=== PATIENT | male | born 1960 | race Caucasian/White ===

== ENCOUNTER 2024-05-13 05:28 | Observation (INO) ==
--- NOTE | 2024-03-29 13:28 | PAT Medication Instructions ---
Medication Instructions Date of Service March 29, 2024 Home Medications Medication Instructions Recorded meloxicam 7.5 mg tablet 7.5 mg PO DAILY PRN pain 90 days 02/29/24 #90 tabs tramadol 50 mg tablet 50 mg PO Q6H PRN pain #45 tabs 03/29/24 meloxicam 7.5 mg tablet 7.5 mg PO DAILY PRN pain acetaminophen 500 mg capsule 1,000 mg PO Q6H PRN Pain acetaminophen 650 mg tablet,extended release 650 - 1,300 mg PO Q12H PRN Pain ibuprofen 200 mg capsule 400 mg PO Q6H PRN Pain omega-3 fatty acids 2,000 mg PO BID tramadol 50 mg tablet 50 mg PO Q6H PRN pain ASK your surgeon for instructions meloxicam 7.5 mg tablet 7.5 mg PO DAILY PRN pain ibuprofen 200 mg capsule 400 mg PO Q6H PRN Pain STOP taking 2 weeks before surgery (or as soon as possible if surgery is within 2 weeks) omega-3 fatty acids 2,000 mg PO BID Take morning of surgery With a small sip of water, OTHERWISE NOTHING TO EAT OR DRINK AFTER MIDNIGHT: acetaminophen 500 mg capsule 1,000 mg PO Q6H PRN Pain (if needed) acetaminophen 650 mg tablet,extended release 650 - 1,300 mg PO Q12H PRN Pain (if needed) tramadol 50 mg tablet 50 mg PO Q6H PRN pain (if needed) Take evening before surgery acetaminophen 500 mg capsule 1,000 mg PO Q6H PRN Pain (if needed) acetaminophen 650 mg tablet,extended release 650 - 1,300 mg PO Q12H PRN Pain (if needed) tramadol 50 mg tablet 50 mg PO Q6H PRN pain (if needed) Other Notes If you have any questions please call us at [phone] or [phone] or [phone] or [phone]
--- NOTE | 2024-04-20 10:16 | Anesthesiology Consultation ---
Date of Service April 20, 2024 Assessment & Plan (1) Encounter for pre-operative examination: - Infectious disease screening: Per assessment on 04/20/24- No known recent infectious disease contacts or current infectious disease symptoms. - Outpatient joint assessment: Pt currently scheduled for inpatient pathway. If surgeon requests review for outpatient joint pathway, patient is an acceptable candidate for outpatient joint program from anesthesia standpoint pending surgeon's office assessment that patient is motivated, has good support and completes [facility] Program preop requirements. Chart Review Chart Review: Acceptable Risk for Surgery and Patient seen in Pre Admission Testing Teaching & Discussion Pre-Anesthesia Teaching/Discussion Notes: Instructed NPO after midnight before surgery,except medications with 15 cc of water. Medication instructions provided according to the PAT guidelines. History Surgery Operation Date: 05/13/24 08:00 Proposed Procedures p Left Total Hip Arthroplasty Anterior - Ruben Wang DO Height/Weight Height: 5 ft 10 in Weight: 108.6 kg Allergies Allergy/AdvReac Type Severity Reaction Status Date / Time No Known Allergies Allergy NONE Verified 03/28/24 07:33 Medications Home Medications Medication Instructions Recorded Confirmed Last Taken meloxicam 7.5 mg tablet 7.5 mg PO DAILY PRN pain 90 days 02/29/24 03/28/24 Unknown #90 tabs acetaminophen 500 mg capsule 1,000 mg PO Q6H PRN Pain 03/28/24 03/28/24 Unknown acetaminophen 650 mg 650 - 1,300 mg PO Q12H PRN Pain 03/28/24 03/28/24 Unknown tablet,extended release ibuprofen 200 mg capsule 400 mg PO Q6H PRN Pain 03/28/24 03/28/24 Unknown tramadol 50 mg tablet 50 mg PO Q6H PRN pain #45 tabs 03/29/24 Unknown Past Medical History Medical History Cataract Right (current) History of depression Hypertriglyceridemia Per records Nocturnal hypoxemia Per records Osteoarthritis Sleep apnea CPAP (compliant) Exercise / Class Metabolic Activity III < 4 Walking/Shop/Light housework Past Family History Family History Mother Diabetes Cancer Other No family history of adverse response to anesthesia Past Surgical History Surgical History H/O detached retina repair left History of cataract surgery left History of hand surgery left History of knee surgery right History of tonsillectomy Past Anesthesia History No Hx of Anesthesia Complications and No Family Hx of Anesthesia Complications History of PONV No Hx of PONV and No Hx of Motion Sickness Social History Smoking Status: Former smoker Do You Dip or Chew Tobacco: Yes (Daily- Advised none DOS) Smoking End Date: Quit 2017 Hx Alcohol Use: No Hx Substance Use: No substance use type: does not use Review of Systems Patient denies chest pain, shortness of breath, fever, chills, cough, wheezing. Physical Exam Vital Signs BP 129/86 P 84 TEMP 98.3 SP02 96%RA RESP 16 Physical Full cervical extension range of motion. Full TMJ range of motion. TMD > 3.5 finger breaths Mallampati Score II Dentition: several missing, poor dentition Lungs: clear throughout to auscultation Cardiac: regular rate and rhythm, no murmurs noted Spine: normal Carotid arteries: negative bruit Extremities: no LE edema Lab Results Anesthesia Preop Results Results Anesthesia Widget: WBC 8.41 K/ul (4.8-10.8) 04/20/24 Hgb 15.2 g/dl (14.0-18.0) 04/20/24 Hct 44.0 % (42.0-52.0) 04/20/24 Plt 278 K/uL (130-400) 04/20/24 Na 135 mmol/L (136-145) L 04/20/24 K 4.7 mmol/L (3.5-5.1) 04/20/24 Cl 101 mmol/L (98-107) 04/20/24 CO2 28 mmol/L (21-32) 04/20/24 BUN 16 mg/dl (6-23) 04/20/24 Creat 0.92 mg/dl (0.6-1.4) 04/20/24 Glucose Level 93 mg/dl (70-99(Fasting)) 04/20/24 PT 11.1 Seconds (9.0-12.0) 04/20/24 PTT 28 Seconds (21-31) 04/20/24 INR 1.0 (0.9-1.1) 04/20/24 Blood Type O Positive 04/20/24 Antibody Screen POSITIVE A 04/20/24 Testing Laboratory Results *Spoke with blood bank- indicates aware of positive antibodies/nothing further needed from PAT* Electrocardiogram Date: 04/20/24 NSR at 75bpm. "Normal ECG" Chest X-Ray Date: 04/20/24 FINDINGS: Heart size and pulmonary vasculature are normal. No effusion, co nsolidation, or pneumothorax. IMPRESSION: No acute findings.
[2024-05-13] MEDS: ACETAMINOPHEN 500 MG TAB PO SCH ×2 (06:04→13:28)
[2024-05-13] MEDS: dexAMETHasone**PF** 10 MG/ML VIAL IV SCH (06:05)
[2024-05-13] MEDS: LR 60ML/HR IV SCH (06:05)
[2024-05-13] MEDS: FAMOTIDINE 20 MG TAB PO SCH (06:05)
[2024-05-13] MEDS: GABAPENTIN 600 MG DOSE PO SCH (06:05)
[2024-05-13] MEDS: LR 500ML BOLUS, THEN 15ML/HR IV SCH (06:05)
[2024-05-13] MEDS ORDERED: ROPIVACAINE 0.5% 5 MG/ML 30 ML VIAL ONE (06:29)
[2024-05-13] MEDS ORDERED: fentaNYL citrate PF 100 MCG/2 ML VIAL IV PRN (06:38)
[2024-05-13] MEDS ORDERED: ATROPINE SULFATE 0.1 MG/ML 10ML SYR IV PRN (06:38)
[2024-05-13] MEDS ORDERED: ePHEDrine sulfate 50 MG/ML AMP IV PRN (06:38)
[2024-05-13] MEDS ORDERED: ONDANSETRON INJ 2 MG/ML 2 ML VIAL IV PRN ×2 (06:38→10:12)
[2024-05-13] MEDS ORDERED: HYDROmorphone INJ 1 MG/ML SYRINGE IV PRN (06:38)
[2024-05-13] MEDS ORDERED: MIDAZOLAM HCL 1 MG/ML 2ML VIAL ONE ×3 (06:42→07:48)
--- NOTE | 2024-05-13 06:51 | History & Physical Bridge Note ---
Date of Service May 13, 2024 History & Physical Bridge Note I have examined the patient, reviewed the History & Physical and in the interval since the performance of the History & Physical I have noted the following changes of clinical significance: no changes noted
[2024-05-13] MEDS: TRANEXAMIC ACID 1,000 MG **IV Pre-op IV SCH (06:52)
[2024-05-13] MEDS ORDERED: PROPOFOL IV EMULSION 10 MG/ML 20 ML VIAL IV ONE (07:21)
[2024-05-13] MEDS: ROPIV 0.5% 246mg, Ketorolac 30mg, EPINEPHrine 0.5mg in NSS INFIL SCH (07:25)
[2024-05-13] MEDS: ceFAZolin 2000MG 2,000 MG/15 ML SYR IV SCH ×2 (07:25→15:37)
[2024-05-13] MEDS: ORTHO JOINT ANESTHETIC ONE (07:25)
[2024-05-13] MEDS: TRANEXAMIC ACID 1,000 MG **IV Intra-op IV SCH (08:00)
--- NOTE | 2024-05-13 08:12 | Operative Report ---
PG Post Operative Report Pre & Post Diagnosis Operation Date: 05/13/24 07:00 Pre-Op Diagnosis: Arthritis Left Hip Post-Op Diagnosis: Arthritis Left Hip I identified the patient and participated in the time-out.: Yes Procedure Operation Date: 05/13/24 07:00 Actual Procedures p Left Anterior Total Hip Arthroplasty, Uncemented(Left) - Ruben Wang DO Surgeon Ruben Wang DO Spanisher Jair Diaz PA-C Estimated Blood Loss 150 Findings Consistent with Post-Op Diagnosis Specimens Left femoral head Description of Procedure Implants used I used a ZimmerBiomet total hip arthroplasty system with a size 7 standard offset Avenir Complete stem, a 52 mm G7 cup, an E1 polyethylene liner, a 36 mm ceramic head with a +7 neck. Balta arrived at the hospital for the above procedure. He was seen in the preoperative holding area and the operative extremity was identified and signed. He was given a spinal anesthetic, a preoperative antibiotic, and TXA. He was then taken back to the operating room and laid on the table in the supine position. He was given basic sedation. The operative leg was secured to a Puristst leg positioner. The hip was then prepped and draped in sterile fashion. A timeout was done and the patient and the operative extremity was properly identified. An anterior approach was used. Dissection was taken down through the fascia and the tensor muscle belly was retracted laterally and the rectus was retracted medially. The circumflex vessels were identified and ligated. The capsule was then incised and tagged for later repair. The femoral neck was then cut and the femoral head was removed. The acetabulum was exposed. Time was spent doing a complete circumferential labral release. Sequential reaming of the acetabulum up to a size 51 reamer was done. Final reamings were done under fluoroscopy to ensure appropriate version. A Biomet 52 mm G7 cup was then impacted into place. The E1 polyethylene liner was then snapped into place. Surrounding soft tissues were then injected with 100 cc of an orthopedic pain control cocktail. The proximal femur was then exposed. Sequential broaching up to a size 7 broach was done. Off that broach a size 36 head with a +7 neck was trialed. The hip was reduced and fluoroscopic images showed anatomic alignment of the implants in acceptable length. The broach was removed. The final size 7 standard offset Avenir Complete stem was then impacted into place. A ceramic 36 mm head with a +7 neck was then impacted onto the stem and the hip was reduced. Final fluoroscopic images showed anatomic alignment of the hip. The capsule was then closed with #1 Vicryl suture. A dilute betadyne lavage was then done for 3 minutes. The joint was then irrigated with normal saline solution. The fascia was closed with #1 PDS suture. Skin was closed with 2-0 Vicryl, fanny, and a Silverlon dressing. He was then transferred to a hospital bed and taken to the post anesthesia care unit in stable condition. He tolerated the procedure well. Jair Diaz PA-C, was present for the entire procedure. He was critical for patient positioning, prepping, draping, retraction exposure, wound closure and application of sterile dressing. I attest to the content of the Intraoperative Record and any orders documented therein. Any exceptions are noted below.
--- NOTE | 2024-05-13 09:13 | Anesthesiology Progress Note ---
Date of Service May 13, 2024 Anesthesia Post Procedure Vital Signs Vital Signs: Temp Pulse Pulse Resp BP Pulse Ox O2 Del Method 05/13/24 09:05 55 L 12 103/70 96 Room Air 05/13/24 08:55 58 L 18 95/72 L 97 Room Air 05/13/24 08:45 50 L 14 105/59 L 100 Oxymask 05/13/24 08:35 52 L 15 95/55 L 100 Oxymask 05/13/24 08:29 36.0 C L 52 L 14 83/56 L 98 Oxymask 05/13/24 05:37 36.7 C 71 20 123/80 95 Room Air O2 Flow Rate 05/13/24 09:05 05/13/24 08:55 05/13/24 08:45 6 05/13/24 08:35 6 05/13/24 08:29 6 05/13/24 05:37 Transfer of Care Handoff Completed per policy Notes Mental Status: alert / awake / arousable and participated in evaluation Patient Amnestic to Procedure: Yes Nausea / Vomiting: adequately controlled Pain: adequately controlled Airway Patency, RR, SpO2: stable & adequate BP & HR: stable & adequate Hydration State: stable & adequate Neuraxial Anesthesia: was administered and sensory block is resolving Anesthetic Complications: no major complications apparent and Pt Satisfied with anesthetic care
--- NOTE | 2024-05-13 09:26 | XRay Report ---
XR hip 1V LT w pelvis CLINICAL HISTORY: IN PACU - Post Surgical COMPARISON: None FINDINGS: Left hip prosthesis shows no hardware complication. There is expected soft tissue gas. Ski n fanny are present. There are moderate degenerative changes at the right hip. IMPRESSION: Unremarkable postoperative exam. ACT 112: Negative or not required by law. Electronically signed by: Al Bullock M.D. 05/13/2024 9:24 AM
--- NOTE | 2024-05-13 09:59 | Fluoroscopy Report ---
FL hip LT 1V CLINICAL HISTORY: LFT ANTERIOR HIP COMPARISON STUDY: None FLUOROSCOPY TIME: 14 seconds FLUOROSCOPY IMAGES: 2 EXPOSURE DOSE: 2.7 mGy FINDINGS: Fluoroscopy was provided for left hip prosthesis. IMPRESSION: Intraoperative fluoroscopy. ACT 112: Negative or not required by law. Electronically signed by: Al Bullock M.D. 05/13/2024 9:58 AM
[2024-05-13] MEDS ORDERED: oxyCODONE HCL IR 5 MG TAB (IMMEDIATE RELEASE) PO PRN (10:12)
[2024-05-13] MEDS ORDERED: NALOXONE HCL 0.4 MG/1 ML VIAL/CARP IV PRN (10:12)
[2024-05-13] MEDS ORDERED: HYDROmorphone INJ 0.5 MG/0.5 ML SYR IV PRN (10:12)
[2024-05-13] MEDS ORDERED: bisacodyL 10 MG SUPP PR PRN (10:12)
[2024-05-13] MEDS ORDERED: MAGNESIUM HYDROXIDE SUSP 30 ML UDC PO PRN (10:12)
[2024-05-13] MEDS ORDERED: METOCLOPRAMIDE HCL INJ 5 MG/ML 2 ML VIAL IV PRN (10:12)
[2024-05-13] MEDS: DOCUSATE SODIUM 100 MG CAP PO SCH (13:08)
[2024-05-13] MEDS: KETOROLAC 30 MG/ML VIAL IV SCH (13:24)
[2024-05-13] MEDS: MULTIVITAMIN TAB PO SCH (13:24)
[2024-05-13] MEDS: SENNA 8.6 MG TAB PO SCH (20:05)
[2024-05-13 23:08] VITALS: RESP 16
[2024-05-14] MEDS: ASPIRIN 81 MG ECTAB PO SCH (07:25)
[2024-05-14] MEDS: dexAMETHasone 4 MG TAB PO SCH (07:25)
[2024-05-14 07:48] VITALS: BP 133/84; PULSE 65; TEMP 98.1; O2SAT 97
--- NOTE | 2024-05-14 07:59 | Orthopedic Progress Note ---
Date of Service May 14, 2024 Assessment & Plan (1) Status post left hip replacement: Overall he is doing very well. He is not having much pain in the left hip. He will be seen by physical therapy today for ambulation and range of motion exercises. He is on aspirin for DVT prophylaxis. He can be discharged to home later today. He will follow-up with orthopedics in 2 weeks. Deborah Gifford was seen and examined at bedside this morning. Overall is doing very well. He is not having much pain in the left hip. He has been up and ambulating to the bathroom. He has no complaints.. Review of Systems All systems reviewed & are unremarkable except as noted in HPI & below. Physical Exam On physical exam of the left hip, the dressing is clean and dry. His leg is out full extension. He has active dorsiflexion plantarflexion of his left ankle.. Results & Data Results & Data Laboratory Results . Diagnostic Findings Postoperative x-rays of the left hip show the prosthesis to be in anatomic ali gnment without any evidence of fracture complication, or loosening.. PG Care Time/CCT Total # of Minutes Spent Total Time Spent with Patient: Total time spent is greater than 50% in coordination of care (as documented) at patient's floor/unit and/or counseling patient: Coding Level of Care Code 33268 Post Operative Follow-Up Diagnoses Status post left hip replacement Z96.642
--- NOTE | 2024-05-14 08:00 | Discharge Summary ---
Date of Service May 14, 2024 Principal Diagnosis Same as "Discharge Diagnosis" noted below under Discharge Instructions. Discharge Exam On physical exam of the left hip, the dressing is clean and dry. His leg is out full extension. He has active dorsiflexion plantarflexion of his left ankle.. Discharge Data Procedures Performed Operation Date: 05/13/24 07:00 Actual Procedures p Left Anterior Total Hip Arthroplasty, Uncemented(Left) - Ruben Wang DO Ordered Studies 05/13/24 07:00 FL hip LT 1V Routine Hospital Course (1) Status post left hip replacement: On May 13, 2024 Balta arrived at [facility] and underwent a left hip replacement without complication. He had a spinal anesthetic. Postoperatively, he was started on aspirin for DVT prophylaxis and transferred to the general orthopedic floors. His hospital course was uneventful. On postop day #1, his vital signs were stable and his pain was well-controlled. He was able to participate well with physical therapy doing ambulation and range of motion exercises. He was then discharged to home. He will follow with orthopedics in 2 weeks. PG Care Time/CCT Total # of Minutes Spent Total Time Spent with Patient: Total time spent is greater than 50% in coordination of care (as documented) at patient's floor/unit and/or counseling patient: Discharge Plan Discharge Items Patient Disposition: Home - Self-Care Reason For Visit: Arthritis Hip Left Discharge Diagnosis: Left hip replacement Activity: Per Instructions section Non-emergency contact: Surgeon Call non-emergency contact if: your wound has increased redness and your wound has increased drainage Follow-up/Referrals: Willa Bridges MD [Primary Care Provider] - Diet: Regular Addtl Attending Provider Instructions: Activity and Therapy Recommendations: * If you are using [facility] then therapy will be provided at your home until they feel you have accomplished all of your goals. * If you are using [facility] then Physical Therapy will be provided until they feel you are ready to start Outpatient Physical Therapy. * If you are not using home therapy then Outpatient Physical Therapy should start about 3-5 days from your day of surgery. Therapy will last about 6-10 weeks * You were shown a series of exercises in the hospital. Do these exercises three times each day including the exercises you were shown in physical therapy. * Get up and walk several times each day.~ For the first four weeks, try not to stand or walk for more than one hour at a time. If you do stand or walk for more than one hour, you will not hurt anything, but your leg will likely swell.~~ * As you feel comfortable, you may change from the walker or crutches to a cane and~then to independent walking. Medications: * Narcotic You will likely be sent home from the hospital with a prescription for the narcotic pain medication that worked best throughout your stay. * Cefadroxil -take the antibiotic twice a day for 10 days to help prevent infection. * Aspirin Most patients will be required to take Aspirin 81mg twice a day for 6 weeks after surgery. This is obtained [id number] and a prescription is not necessary. * Other medications may be prescribed for specific circumstances. If you have any questions, please call the office at . * Resume previous home medications unless otherwise instructed TEDs/Elastic Stockings: The white elastic stockings help limit swelling and prevent blood clots from forming in your legs. The more you wear them, the more they work. Wear them for 2 weeks. Dressing Care: Leave the Silverlon dressing in place for 7 days. After 7 days you may remove the dressing. If the incision is not draining then you may leave the fanny open to air. If there is a little bit of drainage or if the fanny are getting stuck on your clothing then cover the incision with a dry dressing. The fanny will be removed at your 2 week follow-up appointment. Showering: You may shower with the Silverlon dressing in place. Do not let the shower spray hit the dressing directly. Pat the Silverlon dressing dry. If the dressing becomes wet underneath, then simply remove the dressing. Keep the incision dry until you are 7 days out from the day of surgery. After 7 days you may remove the Silverlon dressing and shower with the fanny exposed. Let soapy water run over the fanny and pat them dry. Do not scrub or soak the incision. Diet: You may resume your previous diet. Things To Watch For: * Drainage from the incision site that occurs more than one week after your surgery. * Increased redness at the incision site. * Fever above 102 degrees Fahrenheit. * Unusual chest pain or shortness of breath. * Call [facility] at with any of the above problems Follow-Up Visit: Follow-up with Dr. Wang's office 2-3 weeks after your day of surgery. We will remove your fanny and answer any questions. If you have any additional questions or concerns, Dr Wang is usually in the office at the same time and will be available An appointment was probably scheduled when you signed-up for surgery in the office. If you have any questions call Office Instructions: More detailed instructions as well as Frequently Asked Questions were provided in a folder by our office when you signed-up for surgery. Please review these instructions when you get home. If you have any further questions or concerns, please feel free to call the office at [phone] Pending Studies at Discharge: No Stand-Alone Forms: My [facility], Smoking Cessation Medications and DC Order Prescriptions: New cefadroxil 500 mg capsule 500 mg PO BID 10 Days Qty: 20 0RF oxycodone 5 mg tablet 5 mg PO Q6H PRN (Reason: pain) Qty: 30 0RF aspirin 81 mg Tablet,Delayed Release (Dr/Ec) 81 mg PO BID Qty: 0 0RF Continued tramadol 50 mg tablet 50 mg PO Q6H PRN (Reason: pain) Qty: 45 0RF (DME) Wheeled Walker Misc See Rx Instructions .MEDSUPPLY Qty: 1 0RF Rx Instructions: As directed ibuprofen 200 mg Capsule 400 mg PO Q6H PRN (Reason: Pain) acetaminophen [Tylenol Arthritis] 650 mg Tablet Extended Release 650 - 1,300 mg PO Q12H PRN (Reason: Pain) acetaminophen [Tylenol Extra Strength] 500 mg Capsule 1,000 mg PO Q6H PRN (Reason: Pain) meloxicam 7.5 mg tablet 7.5 mg PO DAILY PRN (Reason: pain) Rx Instructions: 1-2 tablets Discharge Orders: Discharge Order (Routine); Ordered 05/14/24 Ordered By: Ruben Wang Admission Data Admit Date/Time: 05/13/24 08:32 Attending Provider: Ruben Wang Admit Provider: Ruben Wang Primary Care Provider: Willa Bridges
== END 2024-05-14 11:50 | disposition home or self-care (01) ==
LOC: PACUINP 05:28 → ASU 05:28 → 3E 12:42